=== PATIENT | female | born 1995 | race Caucasian/White ===

== ENCOUNTER 2016-09-15 18:55 | Emergency (ER) | payer BC ==
[2016-09-15 19:05] VITALS: BP 121/65
--- NOTE | 2016-09-15 19:13 | UC ---
Lower Extremity/Ankle HPI - HPI Summary HPI Summary: The patient comes in today for: 1. 2nd and 3rd left toe pain, and right 5th toe pain: Onset: "a couple days." Palliative/provocative: Nothing makes the symptoms better or worse. Quality: Itchy and painful. Region: Right 5th toe, and the 2nd and 3rd toe on the left. Severity: 6/10 though she looks more like 4/10. She is laughing and smiling at times. Time: Constant Associated symptoms: Worsening of the toe pain today. Home treatment: None. Injury: None. * - History of Current Complaint Chief Complaint: UCLowerExtremity Stated Complaint: TOE PAIN Time Seen by Provider: 09/15/16 18:58 Hx Obtained From: Patient Hx Last Menstrual Period: 08/21/16 ?: No - Allergies/Home Medications Allergies/Adverse Reactions: Allergies Allergy/AdvReac Type Severity Reaction Status Date / Time Cefdinir Allergy GI Upset Verified 05/20/14 09:57 Home Medications: Home Medications NK [No Home Medications Reported] 09/15/16 [History Confirmed 09/15/16] PMH/Surg Hx/FS Hx/Imm Hx Previously Healthy: Yes Endocrine History Of: Denies: Diabetes, Thyroid Disease, Hyperthyroidism, Hypothyroidism, Dyslipidemia Cardiovascular History Of: Denies: Cardiac Disorders, Hypertension, Pacemaker/ICD, Myocardial Infarction , Congestive Heart Failure, Atrial Fibrillation, Deep Vein Thrombosis, Bleeding Disorders Respiratory History Of: Denies: COPD, Asthma, Bronchitis, Pneumonia, Pulmonary Embolism GI/ History Of: Denies: Gastroesophageal Reflux, Ulcer, Gastrointestinal Bleed, Gall Bladder Disease, Kidney Stones, Diverticulitis, Renal Disease, Urosepsis Neurological History Of: Denies: TIA, CVA, Dementia, Seizures, Migraine Psychological History Of: Denies: Anxiety, Depression, Bipolar Disorder, Schizophrenia, Post Traumatic Stress Disorder Cancer History Of: Denies: Lung Cancer, Colorectal Cancer, Breast Cancer, Prostate Cancer, Cervical Cancer Other History Of: Negative For: HIV, Hepatitis B, Hepatitis C - Surgical History Surgical History: Yes Surgery Procedure, Year, and Place: acl repair - Family History Known Family History: Negative: Cardiac Disease, Hypertension - Social History Occupation: Student Alcohol Use: Occasionally Substance Use Type: None Smoking Status (MU): Never Smoked Tobacco - Immunization History Most Recent Influenza Vaccination: fall 2013 Vaccination Up to Date: Yes Review of Systems Constitutional: Negative Skin: Negative Eyes: Negative ENT: Negative Respiratory: Negative Cardiovascular: Negative Gastrointestinal: Negative Genitourinary: Negative Musculoskeletal: Arthralgia, Myalgia All Other Systems Reviewed And Are Negative: Yes Physical Exam Triage Information Reviewed: Yes Appearance: Well-Appearing, No Pain Distress, Well-Nourished Vital Signs: Initial Vital Signs Temp 99.2 F 09/15/16 18:59 Pulse 90 09/15/16 18:59 Resp 18 09/15/16 18:59 BP 121/65 09/15/16 18:59 Pulse Ox 97 09/15/16 18:59 Vital Signs Reviewed: Yes Eyes: Positive: Conjunctiva Clear. Negative: Discharge ENT: Positive: Hearing grossly normal. Negative: Pharyngeal erythema, Nasal congestion, Nasal drainage, TM bulging, TM dull, TM red, Tonsillar swelling, Tonsillar exudate Dental: Negative: Gross Decay/Caries @, Dental Fracture @ Neck: Positive: Supple, Nontender, No Lymphadenopathy. Negative: Nuchal Rigidity Respiratory: Positive: Lungs clear, No respiratory distress, No accessory muscle use. Negative: Crackles, Rhonchi Cardiovascular: Positive: RRR, No Murmur Abdomen Description: Positive: Nontender, No Organomegaly, Soft. Negative: Distended, Guarding Musculoskeletal: Positive: Strength Intact, ROM Intact, No Edema, Other: - Toes : There was only slight redness, no marked edema or tenderness to the right 5th toe. On the left, there was also no edema, and no marked erythema. There was slight tenderness to palpation and flexing of the left second and third toes. NO marked tenderness to palpation. Neurological: Positive: Alert, Muscle Tone Normal Psychological: Positive: Age Appropriate Behavior, Consolable Skin: Negative: rashes, breakdown Lower Extremity Course/Dx - Differential Dx/Diagnosis Differential Diagnosis/HQI/PQRI: Arthritis, Cellulitis, Infection Provider Diagnoses: Toe strain. arthritis Discharge - Discharge Plan Condition: Stable Disposition: HOME Patient Education Materials: Arthritis (ED) Referrals: Santino Roceh MD [Primary Care Provider] - 1 Week (Please see your primary care provider in a week to see how well you are doing. If you get worse, please be seen sooner in the ER or through us.)
== END 2016-09-15 19:28 | disposition home or self-care (01) ==
LOC: UCEAST 18:55
DX: S96.912A Strain of unspecified muscle and tendon at ankle and foot level, left foot, initial encounter (principal); S96.911A Strain of unspecified muscle and tendon at ankle and foot level, right foot, initial encounter; X58.XXXA Exposure to other specified factors, initial encounter; Y93.9 Activity, unspecified; Y92.9 Unspecified place or not applicable; Z88.1 Allergy status to other antibiotic agents; M19.079 Primary osteoarthritis, unspecified ankle and foot
CPT/HCPCS: 99212; G0463

== ENCOUNTER 2018-11-18 11:46 | Emergency (ER) | payer BC ==
[2018-11-18 11:58] VITALS: BP 104/53
--- NOTE | 2018-11-18 12:28 | UC ---
Allergic Reaction HPI - HPI Summary HPI Summary: 23-year-old woman with a chief complaint of sore throat. Started 3 days ago. Hurts more when she swallows. This been taken ibuprofen and drink tea and that does help. No fevers. No bodyaches. Minimal rhinorrhea. Patient does have some chest congestion that she has had for 2 weeks. - History of Current Complaint Chief Complaint: UCRespiratory Stated Complaint: SORE THROAT Time Seen by Provider: 11/18/18 12:12 Hx Last Menstrual Period: 11/08/18 Pain Intensity: 5 - Allergies/Home Medications Allergies/Adverse Reactions: Allergies Allergy/AdvReac Type Severity Reaction Status Date / Time cefdinir Allergy GI Upset Verified 11/18/18 11:58 Home Medications: Home Medications Ibuprofen 400 mg PO 11/18/18 [History] PMH/Surg Hx/FS Hx/Imm Hx Previously Healthy: Yes Other History Of: Negative For: HIV, Hepatitis B, Hepatitis C - Surgical History Surgical History: Yes Surgery Procedure, Year, and Place: acl repair - Family History Known Family History: Negative: Cardiac Disease, Hypertension - Social History Alcohol Use: Occasionally Substance Use Type: None Smoking Status (MU): Never Smoked Tobacco - Immunization History Most Recent Influenza Vaccination: fall 2013 Vaccination Up to Date: Yes Review of Systems All Other Systems Reviewed And Are Negative: Yes Constitutional: Positive: Negative Skin: Positive: Negative Eyes: Positive: Negative ENT: Positive: Sore Throat, Nasal Discharge, Sinus Congestion Respiratory: Positive: Other - see hpi Cardiovascular: Positive: Negative Gastrointestinal: Positive: Negative Motor: Positive: Negative Neurovascular: Positive: Negative Musculoskeletal: Positive: Negative Neurological: Positive: Negative Psychological: Positive: Negative Is Patient Immunocompromised?: No Physical Exam Triage Information Reviewed: Yes Appearance: Well-Appearing, No Pain Distress, Well-Nourished Vital Signs: Initial Vital Signs Temp 98.4 F 11/18/18 11:55 Pulse 67 11/18/18 11:55 Resp 18 11/18/18 11:55 BP 104/53 11/18/18 11:55 Pulse Ox 100 11/18/18 11:55 Vital Signs Reviewed: Yes Eye Exam: Normal Eyes: Positive: Conjunctiva Clear ENT: Positive: Pharyngeal erythema, Nasal congestion, Nasal drainage, TMs normal Neck exam: Normal Neck: Positive: Supple Respiratory: Positive: Lungs clear, Normal breath sounds, No respiratory distress Cardiovascular: Positive: RRR Musculoskeletal Exam: Normal Musculoskeletal: Positive: Strength Intact, ROM Intact Neurological: Positive: Alert, Muscle Tone Normal Psychological Exam: Normal Psychological: Positive: Normal Response To Family, Age Appropriate Behavior Skin Exam: Normal Allergic Reaction Course/Dx - Course Course Of Treatment: Rx zpack for 2 weeks of chest congestion - Differential Dx/Diagnosis Provider Diagnosis: Pharyngitis, Bronchitis Discharge - Sign-Out/Discharge Documenting (check all that apply): Patient Departure All imaging exams completed and their final reports reviewed: No Studies - Discharge Plan Condition: Stable Disposition: HOME Prescriptions: Azithromyxin LARRY (NF) [Z-Larry (Zithromax) 250 mg tabs #6] 2 tab PO .TODAY, THEN 1 DAILY #6 tab Patient Education Materials: Pharyngitis (ED), Acute Bronchitis (ED) Referrals: Santino Roche MD [Primary Care Provider] - Additional Instructions: FOLLOW UP WITH YOUR DOCTOR IF NOT COMPLETELY IMPROVED. GET RECHECKED FOR ANY WORSENING OF YOUR CONDITION OR QUESTIONS OR CONCERNS. - Billing Disposition and Condition Condition: STABLE Disposition: Home
== END 2018-11-18 12:52 | disposition home or self-care (01) ==
LOC: UCEAST 11:46
DX: J40 Bronchitis, not specified as acute or chronic (principal); J02.9 Acute pharyngitis, unspecified; Z88.1 Allergy status to other antibiotic agents
CPT/HCPCS: 87651; 99212; G0463